=== PATIENT | female | born 1975 | race Two or more races ===

== ENCOUNTER 2020-02-07 08:38 | Day surgery (SDC) | payer MEDICAID ==
[~2020-02-07] VITALS: Ht 152.4 cm; Wt 49.9 kg
[2020-02-07] MEDS ORDERED: LACTATED RINGERS 1,000 ML IV SCH (08:45)
[2020-02-07 09:29] LABS: UCG SCREEN NEGATIVE
[2020-02-07 09:37] LABS: CHLORIDE 103 mEq/L (98-107)
[2020-02-07 09:44] LABS: BASOPHILS % 0.8 % (0.0-2.0); EOSINOPHILS % 0.3 % (0.0-5.0); HEMATOCRIT. 45.9 % (36.0-48.0); HEMOGLOBIN. 15.3 g/dL (12.0-16.0); LYMPHOCYTES % 18.5 % (20.0-50.0); MEAN CORPUSCULAR HEMOGLOBIN 29.6 pg (28.0-32.0); MEAN CORPUSCULAR VOLUME 88.9 fL (81.0-99.0); NEUTROPHILS % 75.4 % (40.0-76.0); RED BLOOD CELL COUNT 5.17 mill/uL (4.2-5.4); RED CELL DISTRIBUTION WIDTH 14.8 % (11.6-14.6)
[2020-02-07 09:51] LABS: CLARITY URINE CLOUDY (CLEAR); COLOR URINE YELLOW (YELLOW); KETONES URINE NEGATIVE (NEGATIVE); LEUKOCYTE ESTERASE URINE NEGATIVE (NEGATIVE); NITRITE URINE NEGATIVE (NEGATIVE); OCCULT BLOOD URINE NEGATIVE (NEGATIVE); PROTEIN URINE NEGATIVE (NEGATIVE); SPECIFIC GRAVITY URINE 1.015 (1.005-1.030); UROBILINOGEN URINE 0.2 E.U./dL (0.2-1.0)
[2020-02-07 10:33] LABS: PARTIAL THROMBOPLASTIN TIME 30.4 sec (23.4-31.0); PROTHROMBIN TIME 10.5 sec (9.6-11.0)
[2020-02-07] MEDS ORDERED: FENTANYL CITRATE/PF 50MCG/ML 2ML VIAL ONE ×2 (10:44→12:23)
[2020-02-07] MEDS ORDERED: MIDAZOLAM HCL 2 MG/2 ML VIAL ONE (10:44)
[2020-02-07] MEDS ORDERED: PROPOFOL 200MG/20ML VIAL IV ONE (10:44)
[2020-02-07 11:04] LABS: PLATELET 411 x1000/uL (130-400)
[2020-02-07] MEDS ORDERED: PRED10TA PO (11:04)
[2020-02-07] MEDS ORDERED: LORA10TA7 PO (11:04)
[2020-02-07] MEDS ORDERED: LOSA50TA41 PO (11:04)
[2020-02-07] MEDS ORDERED: TRAZ-252 PO (11:04)
[2020-02-07] MEDS ORDERED: DIPH25CA83 PO (11:04)
[2020-02-07] MEDS ORDERED: HYDR12.54 PO (11:04)
[2020-02-07] MEDS ORDERED: AMLO5TAB88 PO (11:04)
[2020-02-07] MEDS ORDERED: DICL75TA5 PO (11:04)
[2020-02-07] MEDS ORDERED: ATOR40TA70 PO (11:04)
[2020-02-07] MEDS ORDERED: HYDR200T35 PO (11:04)
[2020-02-07] MEDS ORDERED: INDOCYANINE GREEN 25 MG VIAL IV ONE (13:05)
[2020-02-07] MEDS ORDERED: LIDOCAINE HCL 1% 20ML VIAL (Pyxis) INJ ONE (13:05)
[2020-02-07] MEDS ORDERED: SKIN ADHESIVE 0.7 GM EA TOP ONE (13:05)
[2020-02-07] MEDS ORDERED: BUPIVACAINE HCL/PF 0.5% (5MG/ML) 10ML ONE (13:06)
[2020-02-07] MEDS ORDERED: BACITRACIN 50,000 UNITS/VIAL ONE (13:06)
[2020-02-07] MEDS ORDERED: CYCL5TAB PO (13:19)
[2020-02-07] MEDS ORDERED: QUET100T PO (13:19)
[2020-02-07] MEDS ORDERED: FAMO-135 PO (13:19)
[2020-02-07] MEDS ORDERED: ONDA4TAB5 PO (13:19)
[2020-02-07] MEDS ORDERED: QUET25TA PO (13:19)
[2020-02-07] MEDS ORDERED: HYDR-4233 TOP (13:19)
[2020-02-07] MEDS ORDERED: IBUP-2030 PO (13:19)
[2020-02-07] MEDS ORDERED: ASPI-1497 PO (13:19)
[2020-02-07] MEDS ORDERED: BUPR100T13 PO (13:19)
[2020-02-07] MEDS ORDERED: ASPI-1213 PO (13:27)
[2020-02-07] MEDS ORDERED: ROCURONIUM BROMIDE 10MG/ML VIAL 5ML IV ONE (14:04)
[2020-02-07] MEDS ORDERED: HYDROMORPHONE HCL/PF 2MG/ML (OR) ONE (15:24)
[2020-02-07] MEDS ORDERED: KETOROLAC 30MG/ML VIAL ONE (15:29)
[2020-02-07] MEDS ORDERED: ONDANSETRON HCL 4MG/2ML INJ ONE (15:29)
[2020-02-07] MEDS ORDERED: DEXAMETHASONE 4MG/ML 1ML VIAL ONE (15:29)
[2020-02-07] MEDS ORDERED: GLYCOPYRROLATE 0.2 MG/ML 2ML VIAL ONE (15:38)
[2020-02-07] MEDS ORDERED: LABETALOL HCL 5MG/ML VIAL 20ML IV ONE (16:00)
[2020-02-07] MEDS ORDERED: FENTANYL CITRATE/PF 50MCG/ML 2ML VIAL IV PRN (16:45)
[2020-02-07] MEDS ORDERED: ONDANSETRON HCL 4MG/2ML INJ IV PRN (16:45)
[2020-02-07] MEDS ORDERED: MEPERIDINE HCL/PF 25MG/ML CPJ IV PRN (16:45)
[2020-02-07] MEDS: HYDROMORPHONE HCL/PF 2MG/ML CPJ IV PRN ×6 (16:47→17:50)
[2020-02-07 17:50] VITALS: BP 113/80
[2020-02-07] MEDS ORDERED: DIPHENHYDRAMINE 50MG/ML VIAL IV NR (18:17)
== END 2020-02-07 19:50 | disposition home or self-care (01) ==
LOC: OR 08:38
PROVIDERS: ATTEND Specialist
DX: K80.10 Calculus of gallbladder with chronic cholecystitis without obstruction (principal); I10 Essential (primary) hypertension; J45.909 Unspecified asthma, uncomplicated; E78.00 Pure hypercholesterolemia, unspecified; Z79.82 Long term (current) use of aspirin; Z79.899 Other long term (current) drug therapy; Z98.890 Other specified postprocedural states; Z95.0 Presence of cardiac pacemaker; Z91.013 Allergy to seafood; Z88.8 Allergy status to other drugs, medicaments and biological substances
CPT/HCPCS: 36415; 47562; 80053; 81003; 81025; 85025; 85610; 85730; 88304; 93005; J1100; J1170; J1200; J1885; J2250; J2405; J2704; J3010; J3490; Q9957; S2900

== ENCOUNTER → 2020-02-07 | Outpatient (CLI) | payer MEDICAID ==
[~2020-02-07] MED LIST: AMLO5TAB88 PO; ASPI-1213 PO; ASPI-1497 PO; ATOR40TA70 PO; BUPR100T13 PO; CYCL5TAB PO; DICL75TA5 PO; DIPH25CA83 PO; FAMO-135 PO; HYDR-4233 TOP; HYDR12.54 PO; HYDR200T35 PO; IBUP-2030 PO; LORA10TA7 PO; LOSA50TA41 PO; ONDA4TAB5 PO; PRED10TA PO; QUET100T PO; QUET25TA PO; TRAZ-252 PO
== END | disposition home or self-care (01) ==
LOC: LAB 08:04
PROVIDERS: ATTEND Specialist
DX: Z01.812 Encounter for preprocedural laboratory examination (principal); Z20.828 Contact with and (suspected) exposure to other viral communicable diseases
CPT/HCPCS: 87426